=== PATIENT | male | born 1995 | race Caucasian/White ===

== ENCOUNTER 2016-06-01 13:39 | Emergency (ER) | payer SELFPAY ==
--- NOTE | 2016-06-01 15:15 | RAD ---
Indication: RIGHT ankle pain following rolling injury. Lateral pain. Comparison: None. Technique: AP, mortise, and lateral views RIGHT ankle. Report: Significant soft tissue swelling over the lateral malleolus and evidence for talocrural joint effusion. No cortical disruption or suspicious trabecular irregularity to suggest fracture. Congruent ankle mortise. IMPRESSION: Consider potential lateral supporting ligament injury given soft tissue swelling and joint effusion. Negative for fracture or malalignment.
[2016-06-01] MEDS ORDERED: Ketorolac INJ* 60 MG/2 ML VIAL IM ONE (15:42)
[2016-06-01 15:56] VITALS: BP 157/80
--- NOTE | 2016-06-01 16:39 | ED ---
Lower Extremity - History of Current Complaint Chief Complaint: EDExtremityLower Stated Complaint: RT ANKLE INJURY Time Seen by Provider: 06/01/16 14:51 Pain Intensity: 8 - Allergies/Home Medications Allergies/Adverse Reactions: Allergies Allergy/AdvReac Type Severity Reaction Status Date / Time No Known Allergies Allergy Verified 06/01/16 13:58 PMH/Surg Hx/FS Hx/Imm Hx Infectious Disease History: No Infectious Disease History: Denies: Traveled Outside the [place] in Last 30 Days - Social History Alcohol Use: Weekly Substance Use Type: Reports: None Smoking Status (MU): Never Smoked Tobacco Physical Exam Vital Signs On Initial Exam: Initial Vitals Temp Pulse Resp BP Pulse Ox 98.4 F 96 18 157/81 100 06/01/16 13:56 06/01/16 13:56 06/01/16 13:56 06/01/16 13:56 06/01/16 13:56 Diagnostics - Vital Signs Vital Signs Temp Pulse Resp BP Pulse Ox 06/01/16 15:52 97.6 F 92 16 157/80 98 06/01/16 13:56 98.4 F 96 18 157/81 100 - Laboratory Lab Statement: Any lab studies that have been ordered have been reviewed, and results considered in the medical decision making process. Lower Extremity Course/Dx - Diagnoses Differential Diagnosis/HQI/PQRI: Positive: Contusion, Dislocation, Fracture ( Closed), Sprain, Strain, Other Provider Diagnoses: Right ankle sprain, Ligament laxity Discharge - Discharge Plan Condition: Stable Disposition: HOME Prescriptions: Ibuprofen TAB* [Motrin TAB* 800 MG] 800 mg PO Q6H #30 tab Patient Education Materials: Ankle Sprain (ED), Ankle Stirrup Splint (ED) Referrals: Non Staff,Doctor [Primary Care Provider] - Estephanie Rodriguez MD [Medical Doctor] - Additional Instructions: Take prescribed ibuprofen to help with pain and inflammation every 6-8 hours. Take with food to avoid upset stomach. Ice 20 minute on and 20 minutes off. Do not bear weight, use brace and crutches. Elevate and rest your ankle. If symptoms worsen please seek medical attention. Call and make an appointment to be seen by orthopedics for further imaging and treatment.
== END 2016-06-01 17:42 | disposition home or self-care (01) ==
LOC: ED 13:39
DX: S93.401A Sprain of unspecified ligament of right ankle, initial encounter (principal); M24.271 Disorder of ligament, right ankle; X50.1XXA Overexertion from prolonged static or awkward postures, initial encounter; Y93.9 Activity, unspecified; Y92.9 Unspecified place or not applicable
CPT/HCPCS: 96372; 99282; J1885